=== PATIENT | male | born 1965 | race Two or more races ===

== ENCOUNTER 2019-02-13 12:06 | Day surgery (SDC) | payer BC, OTHER ==
[~2019-02-13] VITALS: Ht 167.6 cm; Wt 105.4 kg
[2019-02-13 15:19] VITALS: Ht 167.6 cm; Wt 105.4 kg
[2019-02-13] MEDS ORDERED: HTN MED (15:46)
[2019-02-13] MEDS ORDERED: CHOLESTEROL MED (15:46)
[2019-02-13] MEDS ORDERED: [UNRECOGNIZED DRUG - REMARK] (15:46)
--- NOTE | 2019-02-13 16:22 | PREAC ---
Date/Time of Note Date/Time of Note DATE: 02/13/19 TIME: 16:21 Anesthesia Eval and Record Evaluation Time Pre-Procedure Interview DATE: 02/13/19 TIME: 16:21 Age 53 Sex male NPO: 8 hrs Preoperative diagnosis colon screening Planned procedure colonoscopy Past Medical History Past Medical History: Includes Cardio: HTN, Dyslipidemia GI: Obesity Surgery & Anesthesia Issues No known issue Meds Anticoagulation: No Beta Alka within 24 hr: No Reason Beta Alka not given: Pt. not on B-Alka Reported Medications [Abd Pain] No Conflict Check 02/13/19 [Htn Med] No Conflict Check 02/13/19 [Cholesterol Med] No Conflict Check 02/13/19 Meds reviewed: Yes Allergies Coded Allergies: No Known Allergy (Unverified , 02/13/19) Allergies Reviewed: Yes Labs/Studies Labs Reviewed: Other (NA) test: N/A Pre-procedure Exam Airway: Adequate mouth opening Mallampati: Mallampati II Teeth: Normal Lung: Normal Heart: Normal ASA Physical Status ASA physical status: 2 Emergency: None Planned Anesthetic General/MAC: MAC Pre-operative Attestations Prior to commencing anesthesia and surgery, the patient was re-evaluated, there was verification of: *The patient's identity *The results of appropriate recent lab work and preoperative vital signs *The above evaluation not changing prior to induction *Anesthetic plan, risk benefits, alternative and complications discussed with patient/family; questions answered; patient/family understands, accepts and wishes to proceed. MEGAN MUHAMMAD Feb 13, 2019 16:22
[2019-02-13 16:42] VITALS: BP 158/94; PULSE 75; PULSE 84; RESP 16
[2019-02-13] MEDS ORDERED: LIDOCAINE 2% (SDV) 5 ML INJ ONE (16:51)
[2019-02-13] MEDS ORDERED: PROPOFOL 20 ML ONE (16:51)
[2019-02-13 17:51] VITALS: BP 159/79; PULSE 84; RESP 20
--- NOTE | 2019-02-13 17:57 | PAC ---
Date/Time of Note Date/Time of Note DATE: 02/13/19 TIME: 17:57 Post-Anesthesia Notes Post-Anesthesia Note Last documented vital signs Vital Signs Date Temp Pulse Resp B/P (MAP) Pulse Ox O2 O2 Flow FiO2 Time Delivery Rate 02/13/19 84 20 159/79 96 Room Air 17:51 (105) 02/13/19 96.9 16:42 Activity: WNL Respiratory function: WNL Cardiovascular function: WNL Mental status: Baseline Pain reasonably controlled: Yes Hydration appropriate: Yes Nausea/Vomiting absent: Yes Stephon Mai M.D. Feb 13, 2019 17:57
== END 2019-02-13 20:20 | disposition home or self-care (01) ==
LOC: GIL 12:06
PROVIDERS: ATTEND Internal Medicine Gastroenterology
DX: Z12.11 Encounter for screening for malignant neoplasm of colon (principal); D12.5 Benign neoplasm of sigmoid colon; D12.8 Benign neoplasm of rectum; D12.2 Benign neoplasm of ascending colon
CPT/HCPCS: 45380; 45385; 88305; Z7610